=== PATIENT | male | born 1945 | race Caucasian/White ===

== ENCOUNTER 2019-01-15 09:34 | Emergency (ER) | payer MEDICARE ==
--- NOTE | 2019-01-15 11:12 | EDM.PDOC ---
ED HPI GENERAL MEDICAL PROBLEM - General Chief Complaint: ENT Problem Stated Complaint: NOSE BLEED Time Seen by Provider: 01/15/19 10:54 Source of Information: Reports: Patient, RN Notes Reviewed History Limitations: Reports: No Limitations - History of Present Illness INITIAL COMMENTS - FREE TEXT/NARRATIVE: 73-year-old gentleman presents emergency department today with a nosebleed, he states it spontaneously happened this morning he does take Coumadin last had his INR checked about a month ago he states he's never had a nosebleed like this before - Related Data Allergies Allergy/AdvReac Type Severity Reaction Status Date / Time No Known Allergies Allergy Verified 01/15/19 10:03 Home Meds: Home Meds Aspirin [Halfprin] 81 mg PO DAILY 01/15/19 [History] Clopidogrel [Plavix] 75 mg PO DAILY 01/15/19 [History] Gabapentin [Neurontin] 600 mg PO DAILY 01/15/19 [History] Isosorbide Mononitrate [Ismo] 20 mg PO DAILY 01/15/19 [History] Warfarin Sodium [Coumadin] 10 mg PO DAILY 01/15/19 [History] Past Medical History HEENT History: Reports: Impaired Vision Cardiovascular History: Reports: Arrhythmia, CAD, [place], Stents, Other (See Below) Other Cardiovascular History: chronic total occlusion Respiratory History: Reports: Sleep Apnea, SOB Other Respiratory History: cpap Musculoskeletal History: Reports: Other (See Below) Other Musculoskeletal History: left foot nerve pain Psychiatric History: Reports: PTSD Endocrine/Metabolic History: Reports: Diabetes, Type II, Obesity/BMI 30+ Hematologic History: Reports: Anticoagulation Therapy - Infectious Disease History Infectious Disease History: Reports: Chicken Pox, Measles, Mumps, Shingles, Other (See Below) - Past Surgical History Head Surgeries/Procedures: Reports: None Cardiovascular Surgical History: Reports: Cardiac Ablation, Coronary Artery Bypass Respiratory Surgical History: Reports: Other (See Below) Other Respiratory Surgeries/Procedures: right lung surgery Endocrine Surgical History: Reports: None Musculoskeletal Surgical History: Reports: None Dermatological Surgical History: Reports: None Social & Family History - Tobacco Use Smoking Status *Q: Former Smoker Used Tobacco, but Quit: No Month/Year Tobacco Last Used: 1976 - Caffeine Use Caffeine Use: Reports: None - Recreational Drug Use Recreational Drug Use: No ED ROS ENT - Review of Systems Review Of Systems: See Below Constitutional: Reports: No Symptoms HEENT: Reports: Nosebleed Respiratory: Reports: No Symptoms Cardiovascular: Reports: No Symptoms ED EXAM, ENT - Physical Exam Exam: See Below Exam Limited By: No Limitations General Appearance: Alert, WD/WN, No Apparent Distress Nose: Normal Inspection, Dried Blood. No: Nasal Swelling, Nasal Tenderness, Septal Hematoma, Active Bleeding Respiratory/Chest: No Respiratory Distress Course - Vital Signs Last Recorded V/S: Last Vital Signs Temp 97.0 F 01/15/19 10:07 Pulse 94 01/15/19 10:07 Resp 17 01/15/19 10:07 BP 140/73 01/15/19 10:07 Pulse Ox 97 01/15/19 10:07 - Orders/Labs/Meds Labs: Laboratory Tests 01/15/19 01/15/19 Range/Units 11:18 11:18 Hgb 13.9 (12.0-15.0) g/dL PT 45.0 H (9.5-12.0) sec INR 4.45 H* (0.80-1.20) Departure - Departure Time of Disposition: 11:52 Disposition: Home, Self-Care 01 Condition: Fair Clinical Impression: Epistaxis - Discharge Information Referrals: PCP,None [Primary Care Provider] - Forms: ED Department Discharge Additional Instructions: Recommending holding off on Coumadin until you're reevaluated by your primary care within the next couple of days with recheck of INR, continue to use the nose clamp as needed - Assessment/Plan Plan: Assessment Acuity = acute Site and laterality = epistaxis, again the patient on anticoagulation therapy Etiology = supratherapeutic INR 4.45 Manifestations = none Location of injury = Home Lab values = INR 4.45 supratherapeutic, hemoglobin stable 13.9 Plan His bleeding was controlled with a nose clamp I discussed with him options which included a Rhino Rocket he declined at this time he is going to hold off on his Coumadin he will follow-up with his doctor next week This note was dictated using [employer] voice recognition software please call with any questions on syntax or grammar.
== END 2019-01-15 11:57 | disposition home or self-care (01) ==
LOC: JP.ED 09:34
DX: R04.0 Epistaxis (principal); E11.9 Type 2 diabetes mellitus without complications; I25.2 Old myocardial infarction; Z87.891 Personal history of nicotine dependence; Z79.82 Long term (current) use of aspirin; Z79.899 Other long term (current) drug therapy; Z79.01 Long term (current) use of anticoagulants
CPT/HCPCS: 36415; 85018; 85610; 99283

== ENCOUNTER 2019-01-30 22:18 | Emergency (ER) | payer MEDICARE ==
--- NOTE | 2019-01-30 23:00 | EDM.PDOC ---
ED HPI GENERAL MEDICAL PROBLEM - General Chief Complaint: ENT Problem Stated Complaint: REMOVE NASAL PLUG Time Seen by Provider: 01/30/19 22:56 Source of Information: Reports: Patient History Limitations: Reports: No Limitations - History of Present Illness INITIAL COMMENTS - FREE TEXT/NARRATIVE: pt has a nasal packing in the rt nare. He has had that for 2 days. He is on coumadin and he had a inr 2 days ago that was 1.8. He has not been bleeding and he is directed to have the packing removed. Onset: Other ( 2 days ago packing was placed. ) Duration: Day(s): Associated Symptoms: Reports: No Other Symptoms denies pain Pain Score (Numeric/FACES): 0 - Related Data Allergies Allergy/AdvReac Type Severity Reaction Status Date / Time No Known Allergies Allergy Verified 01/30/19 22:33 Home Meds: Home Meds Aspirin [Halfprin] 81 mg PO DAILY 01/15/19 [History] Clopidogrel [Plavix] 75 mg PO DAILY 01/15/19 [History] Gabapentin [Neurontin] 600 mg PO DAILY 01/15/19 [History] Isosorbide Mononitrate [Ismo] 20 mg PO DAILY 01/15/19 [History] Warfarin Sodium [Coumadin] 10 mg PO DAILY 01/15/19 [History] Past Medical History HEENT History: Reports: Impaired Vision Cardiovascular History: Reports: Arrhythmia, CAD, [place], Stents, Other (See Below) Other Cardiovascular History: chronic total occlusion Respiratory History: Reports: Sleep Apnea, SOB Other Respiratory History: cpap Musculoskeletal History: Reports: Other (See Below) Other Musculoskeletal History: left foot nerve pain Psychiatric History: Reports: PTSD Endocrine/Metabolic History: Reports: Diabetes, Type II, Obesity/BMI 30+ Hematologic History: Reports: Anticoagulation Therapy - Infectious Disease History Infectious Disease History: Reports: Chicken Pox, Measles, Mumps, Shingles, Other (See Below) - Past Surgical History Cardiovascular Surgical History: Reports: Cardiac Ablation, Coronary Artery Bypass Respiratory Surgical History: Reports: Other (See Below) Other Respiratory Surgeries/Procedures: right lung surgery Social & Family History - Tobacco Use Smoking Status *Q: Never Smoker - Caffeine Use Caffeine Use: Reports: Coffee - Recreational Drug Use Recreational Drug Use: No ED ROS ENT - Review of Systems Review Of Systems: See Below Constitutional: Reports: No Symptoms HEENT: Reports: Other (pt is not bleeding. ) Respiratory: Reports: No Symptoms Cardiovascular: Reports: No Symptoms Endocrine: Reports: No Symptoms GI/Abdominal: Reports: No Symptoms ED EXAM, ENT - Physical Exam Exam: See Below Text/Narrative:: pt is here to have a nasal packing removed. He has a rapid rhino in the rt nare. Exam Limited By: No Limitations General Appearance: Alert Nose: Other ( the air was removed from the rapid rhino and it was removed. He did not have bleeding. He was sprayed with afrin. ) Course - Vital Signs Last Recorded V/S: Last Vital Signs Temp 35.4 C 01/30/19 22:31 Pulse 61 01/30/19 22:31 Resp 16 01/30/19 22:31 BP 146/92 H 01/30/19 22:31 Pulse Ox 98 01/30/19 22:31 Departure - Departure Time of Disposition: 22:59 Disposition: Home, Self-Care 01 Condition: Fair Clinical Impression: Encounter for removal of nasal packing - Discharge Information Referrals: PCP,None [Primary Care Provider] - Care Plan Goals: spray rt nare with afrin which he has tid for the next 2-3 dayd.
== END 2019-01-30 23:18 | disposition home or self-care (01) ==
LOC: JP.ED 22:18
DX: Z48.00 Encounter for change or removal of nonsurgical wound dressing (principal); Z79.82 Long term (current) use of aspirin; Z79.01 Long term (current) use of anticoagulants; Z79.899 Other long term (current) drug therapy
CPT/HCPCS: 99283